=== PATIENT | female | born 1965 | race Caucasian/White ===

== ENCOUNTER 2023-04-30 16:32 | Emergency (ER) | payer BC ==
[~2023-04-30] VITALS: Ht 162.6 cm; Wt 61.2 kg
[2023-04-30] MEDS ORDERED: SYNTHROID150 MCG PO (16:45)
[2023-04-30] MEDS ORDERED: MOBIC7.5 MG PO (18:46)
== END 2023-04-30 19:11 | disposition home or self-care (01) ==
LOC: ER 16:32
DX: S60.212A Contusion of left wrist, initial encounter (principal); T14.8XXA Other injury of unspecified body region, initial encounter; W19.XXXA Unspecified fall, initial encounter; Y93.89 Activity, other specified; Y92.832 Beach as the place of occurrence of the external cause; Y99.9 Unspecified external cause status